=== PATIENT | male | born 1960 | race Caucasian/White ===

== ENCOUNTER → 2017-06-20 | Outpatient (CLI) | payer OTHER ==
[~2017-06-20] VITALS: Ht 177.8 cm; Wt 93.5 kg
[~2017-06-20] MED LIST: HYDROCHLOROTHIA25 M2 PO; LOTREL 10-40 M1 EACH PO; LYRICA100 MG PO; NABUMETONE 750750 M1 PO; PREDNISONE 20 M20 M1 PO; PREDNISONE50 MG PO; SPIRIVA; SYMBICORT160 MCG/4.; TOPROL XL50 MG; ZPAK PO; ZYRTEC 10 MG TA10 MG PO
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
[2017-06-20 09:13] VITALS: BP 118/80
== END ==
LOC: PAIN 06:55
DX: M54.12 Radiculopathy, cervical region (principal); I10 Essential (primary) hypertension; J44.9 Chronic obstructive pulmonary disease, unspecified; Z88.0 Allergy status to penicillin; Z88.2 Allergy status to sulfonamides; Z88.8 Allergy status to other drugs, medicaments and biological substances; Z79.899 Other long term (current) drug therapy

== ENCOUNTER → 2020-10-13 | Outpatient (CLI) | payer MEDICARE | LOC: SJCVC 11:55 | PROVIDERS: ATTEND Internal Medicine Cardiovascular Disease | DX: R94.31 Abnormal electrocardiogram [ECG] [EKG] (principal); R07.9 Chest pain, unspecified; I10 Essential (primary) hypertension; E78.00 Pure hypercholesterolemia, unspecified; J44.9 Chronic obstructive pulmonary disease, unspecified; M79.7 Fibromyalgia; G20 Parkinson's disease; R73.03 Prediabetes; K21.9 Gastro-esophageal reflux disease without esophagitis; Z87.891 Personal history of nicotine dependence; Z72.89 Other problems related to lifestyle; Z79.899 Other long term (current) drug therapy ==

== ENCOUNTER → 2020-10-31 | Outpatient (CLI) | payer OTHER | LOC: CAT 10:34 | PROVIDERS: ATTEND Internal Medicine Cardiovascular Disease | DX: Z13.6 Encounter for screening for cardiovascular disorders (principal); I25.10 Atherosclerotic heart disease of native coronary artery without angina pectoris; E78.00 Pure hypercholesterolemia, unspecified ==

== ENCOUNTER → 2020-11-09 | Outpatient (CLI) | payer OTHER ==
[~2020-11-09] VITALS: Ht 180.3 cm; Wt 95.3 kg
[~2020-11-09] MED LIST changes: +BYSTOLIC 5 MG5 MG PO; +CLOMIPHENE CITR50 MG PO; +DRIZALMA SPRINK60 MG PO; +EDARBYCLOR 40-1 EACH PO; +FLOMAX0.4 MG PO; +LIPITOR40 MG PO; +PROVENTIL HFA6.7 G1 INH; +RELAFEN750 M1 PO; +ZUPLENZ4 MG PO
[2020-11-09 10:23] VITALS: BP 145/88
--- NOTE | 2020-11-09 10:36 | NUR ---
Pain Clinic Assessment: 1. History of Osteoarthritis: CERVICAL EVERYWHERE History of Rheumatoid Arthritis: 2. Height: 5 ft. 11 in. 180.3 cm. Weight: 210.0 lb. oz. 95.256 kg. Patient's BMI: 29.3 3. Vital Signs: BP: 145/88 Pulse: 70 Resp: 16 Temp: 02 Sat: 100 ECG Mon: 4. Pain Intensity: 8 5. Fall Risk: Dizziness: N Needs help standing or walking: N Fallen in the last 3 months: N Fall risk comments: 6. Patient on Blood Thinner: None 7. History of Hypertension: Y 8. Opioid Therapy greater than 6 weeks: N Opiate Contract Signed: 9. Risk Assessment Tool Provided: 3-low risk 10. Functional Assessment Tool: 11. Recreational Drug Use: Never Drug Type: Tobacco Use: Never Smoker Tobacco Type: Amount or Packs/day: How Many Years: Alcohol Use: Yes Frequency: Special Occasions Quant: WHEN GOES OUT TO DINNER
== END ==
LOC: PAIN 06:49
PROVIDERS: ATTEND Anesthesiology Pain Medicine
DX: M50.122 Cervical disc disorder at C5-C6 level with radiculopathy (principal); M25.521 Pain in right elbow; I10 Essential (primary) hypertension; J44.9 Chronic obstructive pulmonary disease, unspecified; M19.90 Unspecified osteoarthritis, unspecified site; M79.10 Myalgia, unspecified site; Z86.79 Personal history of other diseases of the circulatory system; Z88.8 Allergy status to other drugs, medicaments and biological substances; Z79.899 Other long term (current) drug therapy

== ENCOUNTER → 2020-12-07 | Outpatient (CLI) | payer OTHER ==
[~2020-12-07] VITALS: Ht 180.3 cm; Wt 100.3 kg
[~2020-12-07] MED LIST changes: +MEDROLDOSEPACK PO; +NEURONTIN 300M300 M2 PO
[2020-12-07 08:43] VITALS: BP 144/94
--- NOTE | 2020-12-07 08:50 | NUR ---
Pain Clinic Assessment: 1. History of Osteoarthritis: CERVICAL EVERYWHERE History of Rheumatoid Arthritis: 2. Height: 5 ft. 11 in. 180.3 cm. Weight: 221.2 lb. oz. 100.336 kg. Patient's BMI: 30.9 3. Vital Signs: BP: 144/94 Pulse: 72 Resp: 20 Temp: 02 Sat: 97 ECG Mon: 4. Pain Intensity: 6 5. Fall Risk: Dizziness: N Needs help standing or walking: N Fallen in the last 3 months: N Fall risk comments: 6. Patient on Blood Thinner: None 7. History of Hypertension: Y 8. Opioid Therapy greater than 6 weeks: N Opiate Contract Signed: 9. Risk Assessment Tool Provided: 3-low risk 10. Functional Assessment Tool: 11. Recreational Drug Use: Never Drug Type: Tobacco Use: Never Smoker Tobacco Type: Amount or Packs/day: How Many Years: Alcohol Use: Yes Frequency: Quant:
== END ==
LOC: PAIN 06:43
PROVIDERS: ATTEND Anesthesiology Pain Medicine
DX: M54.12 Radiculopathy, cervical region (principal); M79.601 Pain in right arm; M25.521 Pain in right elbow; I10 Essential (primary) hypertension; J44.9 Chronic obstructive pulmonary disease, unspecified; M19.90 Unspecified osteoarthritis, unspecified site; M79.10 Myalgia, unspecified site; Z86.79 Personal history of other diseases of the circulatory system

== ENCOUNTER → 2020-12-14 | Outpatient (CLI) | payer OTHER | LOC: SJCVCIMAG 11-03 09:53 | PROVIDERS: ATTEND Internal Medicine Cardiovascular Disease | DX: I73.9 Peripheral vascular disease, unspecified (principal); I11.9 Hypertensive heart disease without heart failure; E78.5 Hyperlipidemia, unspecified; J44.9 Chronic obstructive pulmonary disease, unspecified; G20 Parkinson's disease; R07.89 Other chest pain; M79.661 Pain in right lower leg; M79.662 Pain in left lower leg ==

== ENCOUNTER → 2021-02-10 | Outpatient (CLI) | payer OTHER ==
[~2021-02-10] VITALS: Ht 180.3 cm; Wt 105.0 kg
[~2021-02-10] MED LIST changes: +MOBIC15 MG PO
[2021-02-10 08:25] VITALS: BP 180/100
--- NOTE | 2021-02-10 08:43 | NUR ---
Pain Clinic Assessment: 1. History of Osteoarthritis: CERVICAL EVERYWHERE History of Rheumatoid Arthritis: Not Applicable 2. Height: 5 ft. 11 in. 180.3 cm. Weight: 231.4 lb. oz. 104.963 kg. Patient's BMI: 32.3 3. Vital Signs: BP: 180/100 Pulse: 80 Resp: 20 Temp: 02 Sat: 98 ECG Mon: 4. Pain Intensity: 9 5. Fall Risk: Dizziness: Y Needs help standing or walking: N Fallen in the last 3 months: N Fall risk comments: 6. Patient on Blood Thinner: None 7. History of Hypertension: Y 8. Opioid Therapy greater than 6 weeks: N Opiate Contract Signed: 9. Risk Assessment Tool Provided: 3-low riskY 10. Functional Assessment Tool: 11. Recreational Drug Use: Never Drug Type: Tobacco Use: Never Smoker Tobacco Type: Amount or Packs/day: How Many Years: Alcohol Use: Yes Frequency: Quant:
== END ==
LOC: PAIN 07:00
PROVIDERS: ATTEND Anesthesiology Pain Medicine
DX: M54.12 Radiculopathy, cervical region (principal); M25.521 Pain in right elbow; I10 Essential (primary) hypertension; J44.9 Chronic obstructive pulmonary disease, unspecified; M19.90 Unspecified osteoarthritis, unspecified site; M79.7 Fibromyalgia

== ENCOUNTER → 2021-03-10 | Outpatient (CLI) | payer OTHER ==
[~2021-03-10] VITALS: Ht 165.1 cm; Wt 101.8 kg
[2021-03-10 12:42] VITALS: BP 151/86
--- NOTE | 2021-03-10 12:50 | NUR ---
Pain Clinic Assessment: 1. History of Osteoarthritis: CERVICAL EVERYWHERE History of Rheumatoid Arthritis: Not Applicable 2. Height: 5 ft. 5 in. 165.1 cm. Weight: 224.4 lb. oz. 101.787 kg. Patient's BMI: 37.3 3. Vital Signs: BP: 151/86 Pulse: 74 Resp: 16 Temp: 02 Sat: 94 ECG Mon: 4. Pain Intensity: 0 TO 9 5. Fall Risk: Dizziness: N Needs help standing or walking: N Fallen in the last 3 months: N Fall risk comments: 6. Patient on Blood Thinner: None 7. History of Hypertension: Y 8. Opioid Therapy greater than 6 weeks: N Opiate Contract Signed: 9. Risk Assessment Tool Provided: 3-low riskY 10. Functional Assessment Tool: 11. Recreational Drug Use: Never Drug Type: Tobacco Use: Former Smoker Tobacco Type: Amount or Packs/day: How Many Years: Alcohol Use: Yes Frequency: Special Occasions Quant:
== END ==
LOC: PAIN 09:29
PROVIDERS: ATTEND Anesthesiology Pain Medicine
DX: M50.123 Cervical disc disorder at C6-C7 level with radiculopathy (principal); M48.02 Spinal stenosis, cervical region; M77.11 Lateral epicondylitis, right elbow; M25.521 Pain in right elbow; I10 Essential (primary) hypertension; J44.9 Chronic obstructive pulmonary disease, unspecified; I34.0 Nonrheumatic mitral (valve) insufficiency; M19.90 Unspecified osteoarthritis, unspecified site; E11.9 Type 2 diabetes mellitus without complications; Z87.891 Personal history of nicotine dependence; Z79.899 Other long term (current) drug therapy; Z79.891 Long term (current) use of opiate analgesic

== ENCOUNTER → 2021-05-17 | Outpatient (CLI) | payer OTHER ==
[~2021-05-17] VITALS: Ht 165.1 cm; Wt 101.8 kg
[~2021-05-17] MED LIST changes: +NEURONTIN 400400 M1 PO
[2021-05-17 08:53] VITALS: BP 145/94
--- NOTE | 2021-05-17 09:18 | NUR ---
Pain Clinic Assessment: 1. History of Osteoarthritis: CERVICAL EVERYWHERE History of Rheumatoid Arthritis: Not Applicable 2. Height: 5 ft. 5 in. 165.1 cm. Weight: 224.4 lb. oz. 101.787 kg. Patient's BMI: 37.3 3. Vital Signs: BP: 145/94 Pulse: 79 Resp: 22 Temp: 02 Sat: 98 ECG Mon: 4. Pain Intensity: 10 BACK/GROIN; 0 NECK 5. Fall Risk: Dizziness: N Needs help standing or walking: N Fallen in the last 3 months: N Fall risk comments: 6. Patient on Blood Thinner: None 7. History of Hypertension: Y 8. Opioid Therapy greater than 6 weeks: N Opiate Contract Signed: 9. Risk Assessment Tool Provided: 3-low risk 10. Functional Assessment Tool: 11. Recreational Drug Use: Never Drug Type: Tobacco Use: Former Smoker Tobacco Type: Amount or Packs/day: How Many Years: Alcohol Use: Yes Frequency: Special Occasions Quant:
== END | disposition home or self-care (01) ==
LOC: PAIN 06:56
PROVIDERS: ATTEND Anesthesiology Pain Medicine
DX: M79.18 Myalgia, other site (principal); G89.29 Other chronic pain; Z98.890 Other specified postprocedural states; Z79.899 Other long term (current) drug therapy; Z87.891 Personal history of nicotine dependence

== ENCOUNTER → 2021-06-23 | Outpatient (CLI) | payer OTHER | LOC: SJCVC 14:26 | PROVIDERS: ATTEND Internal Medicine Cardiovascular Disease | DX: R94.31 Abnormal electrocardiogram [ECG] [EKG] (principal); I11.9 Hypertensive heart disease without heart failure; I25.10 Atherosclerotic heart disease of native coronary artery without angina pectoris; I10 Essential (primary) hypertension; E78.00 Pure hypercholesterolemia, unspecified; E11.9 Type 2 diabetes mellitus without complications; E78.5 Hyperlipidemia, unspecified; M81.0 Age-related osteoporosis without current pathological fracture; J44.9 Chronic obstructive pulmonary disease, unspecified; Z87.891 Personal history of nicotine dependence; Z79.899 Other long term (current) drug therapy; Z72.89 Other problems related to lifestyle; Z98.890 Other specified postprocedural states ==

== ENCOUNTER → 2021-07-24 | Outpatient (CLI) | payer OTHER | LOC: SJCVC 08:56 | PROVIDERS: ATTEND Internal Medicine Cardiovascular Disease | DX: I25.10 Atherosclerotic heart disease of native coronary artery without angina pectoris (principal); I10 Essential (primary) hypertension; E78.00 Pure hypercholesterolemia, unspecified; R94.31 Abnormal electrocardiogram [ECG] [EKG]; E11.9 Type 2 diabetes mellitus without complications; J44.9 Chronic obstructive pulmonary disease, unspecified; K21.9 Gastro-esophageal reflux disease without esophagitis; M19.90 Unspecified osteoarthritis, unspecified site; G20 Parkinson's disease; Z72.89 Other problems related to lifestyle; Z79.899 Other long term (current) drug therapy; Z87.891 Personal history of nicotine dependence ==

== ENCOUNTER → 2021-10-23 | Outpatient (CLI) | payer OTHER ==
[~2021-10-23] MED LIST changes: +NEURONTIN 400M400 M2 PO
== END ==
LOC: SJCVC 09:42
PROVIDERS: ATTEND Internal Medicine Cardiovascular Disease
DX: R94.31 Abnormal electrocardiogram [ECG] [EKG] (principal); R93.1 Abnormal findings on diagnostic imaging of heart and coronary circulation; I11.9 Hypertensive heart disease without heart failure; E78.00 Pure hypercholesterolemia, unspecified; J44.9 Chronic obstructive pulmonary disease, unspecified; G20 Parkinson's disease; R07.9 Chest pain, unspecified; N40.0 Benign prostatic hyperplasia without lower urinary tract symptoms; K21.9 Gastro-esophageal reflux disease without esophagitis; M19.90 Unspecified osteoarthritis, unspecified site; Z87.891 Personal history of nicotine dependence; Z72.89 Other problems related to lifestyle; Z79.899 Other long term (current) drug therapy; Z82.49 Family history of ischemic heart disease and other diseases of the circulatory system; Z88.0 Allergy status to penicillin; Z88.2 Allergy status to sulfonamides; Z88.8 Allergy status to other drugs, medicaments and biological substances